=== PATIENT | female | born 1955 | race Hispanic/Latino ===

== ENCOUNTER 2017-02-20 10:03 | Outpatient (CLI) | payer BC ==
[2017-02-20 10:25] VITALS: BMI 27.3
[2017-02-20 11:11] LABS: #Eosinphils 0.1 thou/uL (0.0-0.7); #Lymphocytes 1.5 thou/uL (1.20-3.40); #Monocytes 0.5 thou/uL (0.11-0.59); #Neutrophils 3.1 thou/uL (1.40-6.50); %Basophils 0.9 % (0.0-1.0); %Eosinophils 2.1 % (0.0-10.0); %Lymphocytes 28.6 % (21.0-51.0); %Monocytes 9.6 % (0.0-10.0); Hematocrit 42.3 % (36.0-47.0); Mean Platelet Volume 6.9 fL (7.4-10.4); White Blood Cell (WBC) Count 5.3 thou/uL (4.8-10.8)
[2017-02-20 11:29] LABS: Anion Gap 12 mmol/L (10-20); BUN (Urea Nitrogen) 17 mg/dL (9.8-20.1); Calc. Creatinine Clearance 88 mL/min (70-130); Calcium 9.3 mg/dL (7.8-10.44); Carbon Dioxide 25 mmol/L (22-29); Chloride 104 mmol/L (98-107); Estimated GFR-MDRD 79
== END 2017-02-20 10:04 | disposition home or self-care (01) ==
LOC: LABBT 10:03
PROVIDERS: ATTEND Specialist
DX: Z01.818 Encounter for other preprocedural examination (principal); K43.9 Ventral hernia without obstruction or gangrene
CPT/HCPCS: 80048; 85025; 93005; 93010

== ENCOUNTER 2017-02-22 06:05 | Day surgery (SDC) | payer BC ==
--- NOTE | 2017-02-18 15:18 | HP ---
HISTORY OF PRESENT ILLNESS: A 61-year-old female who I saw on 12/2016 for umbilical hernia repair. She has a ventral hernia above her umbilicus. She has noticed a bulge in the area. The patient work s for [employer] and lifts boxes weighing up to 50 pounds. She has a small umbilical hernia and supraumbilical hernia. Plan is to repair the hernia, possibly using mesh. This hernia mass is loca brittany about three fingerbreadths above the umbilicus. MEDICATIONS: Lisinopril daily. PAST MEDICAL HISTORY: Hypertension. PAST SURGICAL HISTORY: Tubal ligation. FAMILY HISTORY: Noncontributory. TOBACCO: None. ALCOHOL: None. REVIEW OF SYSTEMS: Ten point noncontributory. PHYSICAL EXAMINATION: VITAL SIGNS: Weight 155 pounds, height 63 inches, 26 BMI, blood pressure 112/64, heart rate 105, tem perature 96 degrees. HEAD, EYES, EARS, NOSE AND THROAT: Unremarkable. LUNGS: Clear to auscultation. CARDIAC: Regular rate and rhythm without murmur or gallop. ABDOMEN: Soft, nontender. Three fingerbreadths above the umbilicus, midline is ventral hernia, more prominent when standing. She has a small umbilical hernia defect that is tender. ASSESSMENT AND PLAN: Supraumbilical hernia and umbilical hernia. Plan repair, possibly using mesh. She understands the risks and benefits and consents.
[2017-02-22] MEDS ORDERED: CEFAZOLIN/Water 2 GM/20 ML SYRINGE ONE (06:17)
[2017-02-22] MEDS ORDERED: Ketorolac Tromethamine 30 MG/ML VIAL ONE (06:18)
[2017-02-22] MEDS ORDERED: Bupivacaine/Epinephrine 0.25% 30 ML VIAL ONE (06:46)
[2017-02-22] MEDS ORDERED: Fentanyl 100 MCG/2 ML VIAL ONE (06:56)
[2017-02-22] MEDS ORDERED: Midazolam HCl 2 mg/2 ml Vial ONE (07:50)
[2017-02-22] MEDS ORDERED: traMADol HCl 50 MG TAB ONE ×2 (10:31→10:32)
--- NOTE | 2017-02-22 10:31 | OP ---
DATE OF PROCEDURE: 02/22/2017 PREOPERATIVE DIAGNOSIS: Supraumbilical hernia three fingerbreadths above the umbilicus, umbilical he rnia. POSTOPERATIVE DIAGNOSIS: Umbilical hernia, large without supraumbilical hernias. SURGEON: Dr. Timoteo Sanchez ANESTHESIA: General. Local 0.25% Marcaine with epinephrine, 30 mL, mixed with 2% Xylocaine, 10 mL. ESTIMATED BLOOD LOSS: Less than 5 mL. PROCEDURE: Umbilical hernia repair with mesh, Ventralex Proceed 6.4 cm. NOTE: Preoperatively I examined the patient during different Valsalva maneuvers with her doing leg l ifts and standing Valsalva and there seemed to be some fullness in the supraumbilical area, but we co uld not reproduce the hernia that we thought we could feel preoperatively supraumbilical however, she did have an umbilical hernia. FINDINGS AT OPERATION: Were through a midline incision supraumbilical over the area marked. There w as no ventral supraumbilical hernia, but there was a large umbilical hernia. PROCEDURE: The patient was taken to the operating room where under general anesthesia, abdomen was p repared with ChloraPrep, draped in routine fashion. Local anesthetic infiltrated into skin and subcu taneous tissue about the operative site. Supraumbilical incision made over the area marked extending approximately 3 fingerbreadths above the umbilicus and carried down through the skin and subcutaneou s tissue to the fascia. Fascia explored superiorly and inferiorly bilaterally and there was no herni a defect in this area. Subcutaneous tissues approximated with 3-0 Monocryl, skin with subdermal 4-0 Monocryl. An infraumbilical incision made and carried down through the skin and subcutaneous tissue and a large umbilical hernia defect appreciated approximately 3-4 cm in diameter. Omental contents d issected free from the subcutaneous tissue and reduced and preperitoneal area cleared and good hemost asis obtained with the cautery. A Ventralex mesh placed preperitoneal using the straps to control it and fascia approximated [id number] type fashion with interrupted sutures of 0 PDS approximating mesh into the fascial approximation with each suture. Straps were removed, knots tied. Subcutaneou s tissues approximated with 3-0 Monocryl, skin with subdermal 4-0 Monocryl and DermaGlue applied.
== END 2017-02-22 11:07 ==
LOC: SDC 06:05
PROVIDERS: ATTEND Specialist
PROC: 0WUF0JZ Supplement Abdominal Wall with Synthetic Substitute, Open Approach (ICD-10-PCS; principal; 2017-02-22)
DX: K42.9 Umbilical hernia without obstruction or gangrene (principal); I10 Essential (primary) hypertension; D64.9 Anemia, unspecified; Z79.51 Long term (current) use of inhaled steroids; Z79.899 Other long term (current) drug therapy; Z98.51 Tubal ligation status; Z87.442 Personal history of urinary calculi; Z87.01 Personal history of pneumonia (recurrent)
CPT/HCPCS: C1781; J0131; J1885; J2250; J3010

== ENCOUNTER 2017-11-22 12:40 | Outpatient (CLI) | payer BC | END 2017-11-22 12:41 | disposition home or self-care (01) | LOC: BICRAD 12:40 | PROVIDERS: ATTEND Family Medicine | DX: R05 Cough (principal) | CPT/HCPCS: 71046 ==

== ENCOUNTER 2018-09-23 08:52 | Outpatient (CLI) | payer BC ==
--- NOTE | 2018-09-23 09:23 | RAD ---
RADIOGRAPH CHEST 2 VIEW: DATE: 09/23/2018 HISTORY: 62-year-old female with "enlarged lymph nodes" FINDINGS: The thoracic aorta is tortuous and ectatic. There is no evidence of airspace density, pulmonary edema , or pneumothorax. There is no cardiomegaly or pleural effusion. IMPRESSION: 1) No acute cardiopulmonary findings. 2) ectasia of thoracic aorta.
== END 2018-09-23 08:53 | disposition home or self-care (01) ==
LOC: BICRAD 08:52
PROVIDERS: ATTEND Family Medicine
DX: R59.9 Enlarged lymph nodes, unspecified (principal); I77.810 Thoracic aortic ectasia
CPT/HCPCS: 71046

== ENCOUNTER 2022-12-25 08:40 | Outpatient (CLI) | payer BC | END 2022-12-25 08:41 | disposition home or self-care (01) | LOC: BICRAD 08:40 | PROVIDERS: ATTEND Family Medicine | DX: Z12.31 Encounter for screening mammogram for malignant neoplasm of breast (principal); R05.9 Cough, unspecified; Z80.3 Family history of malignant neoplasm of breast | CPT/HCPCS: 71046; 77063; 77067 ==

== ENCOUNTER 2023-01-20 20:21 | Emergency (ER) | payer BC ==
[2023-01-20 20:47] LABS: #Basophils 0.1 thou/uL (0.0-0.2); #Eosinphils 0.1 thou/uL (0.0-0.7); #Monocytes 0.6 thou/uL (0.11-0.59); #Neutrophils 3.5 thou/uL (1.40-6.50); %Basophils 0.7 % (0.0-1.0); %Eosinophils 1.5 % (0.0-10.0); %Lymphocytes 46.8 % (21.0-51.0); %Monocytes 7.6 % (0.0-10.0); %Neutrophils 43.3 % (42.0-75.0); Hematocrit 42.1 % (36.0-47.0); Hemoglobin 14.4 g/dL (12.0-16.0); Mean Corpuscular HGB CONC 34.2 g/dL (32.0-36.0); Mean Corpuscular Volume 93.6 fl (78.0-98.0); Platelet Count 212 10x3/uL (130-400); RBC Distribution Width 11.9 % (11.5-14.5); White Blood Cell (WBC) Count 8.1 10x3/uL (4.8-10.8)
[2023-01-20] MEDS ORDERED: Aspirin Chewable 81 MG TAB ONE (21:04)
[2023-01-20 21:11] LABS: ALT (SGPT) 16 U/L (8-55); AST (SGOT) 19 U/L (5-34); Albumin 4.7 g/dL (3.4-4.8); Alkaline Phosphatase 136 U/L (40-110); Anion Gap 14 mmol/L (10-20); BUN (Urea Nitrogen) 18 mg/dL (9.8-20.1); Bilirubin, Total 0.5 mg/dL (0.2-1.2); Calc. Creatinine Clearance 0 mL/min (70-130); Calcium 9.4 mg/dL (7.8-10.44); Carbon Dioxide 23 mmol/L (23-31); Chloride 104 mmol/L (98-107); Estimated GFR 73; Globulin 2.8 g/dL (2.4-3.5); Glucose 122 mg/dL (80-115); Potassium 4.1 mmol/L (3.5-5.1); Protein, Total 7.5 g/dL (5.8-8.1); Sodium 137 mmol/L (136-145)
[2023-01-20 21:14] LABS: Troponin I Less than 0.010 ng/mL (< 0.028)
[2023-01-20 21:15] LABS: Bacteria/HPF None Seen HPF (None Seen); Bilirubin Negative (Negative); Blood, Urine Negative (Negative); CAUTI Indications for Culture Dysuria,urgency,freq; Clarity Clear (Clear); Glucose, Urine (Dipstick) Normal (Negative); Ketone, Urine Negative (Negative); Leukocyte Negative Leu/uL (Negative); Nitrite Negative (Negative); Protein, Urine (Dipstick) Negative (Neg-Trace); RBC/HPF None Seen HPF (0-3); Specific Gravity, Urine 1.005 (1.002-1.036); Squamous Epithelial None Seen HPF (0-3); Urobilinogen Normal mg/dL (Less than 2); WBC/HPF 0-3 HPF (0-3)
[2023-01-20 21:18] LABS: Urine Culture Reflex No No
[2023-01-20] MEDS ORDERED: hydrALAZINE 20 MG/ML VIAL ONE (21:54)
[2023-01-20] MEDS ORDERED: Acetaminophen 500 MG TAB ONE (21:54)
== END 2023-01-20 22:41 | disposition home or self-care (01) ==
LOC: ERS 20:21
DX: I10 Essential (primary) hypertension (principal); E78.5 Hyperlipidemia, unspecified; Z79.899 Other long term (current) drug therapy
CPT/HCPCS: 71045; 80053; 81001; 84484; 85025; 93005; 96374; J0360